=== PATIENT | female | born 1950 | race Hispanic/Latino ===

== ENCOUNTER 2020-09-29 10:40 | Outpatient (CLI) | payer OTHER ==
[2020-09-29 11:53] LABS: Albumin 4.4 g/dL (3.9-5)
== END 2020-09-29 10:41 | disposition home or self-care (01) ==
LOC: LAB 10:40
PROVIDERS: ATTEND Internal Medicine
DX: R94.4 Abnormal results of kidney function studies (principal)
CPT/HCPCS: 36415; 80048; 82040; 84100